=== PATIENT | male | born 1995 | race Caucasian/White ===

== ENCOUNTER 2017-03-09 04:04 | Emergency (ER) | payer OTHER ==
[2017-03-09 05:47] VITALS: BP 122/78
== END 2017-03-09 05:47 | disposition home or self-care (01) ==
LOC: ED 04:04
DX: R10.9 Unspecified abdominal pain (principal)
CPT/HCPCS: J0500

== ENCOUNTER 2017-11-30 17:18 | Emergency (ER) | payer OTHER ==
[~2017-11-30] VITALS: Ht 175.3 cm; Wt 159.7 kg
[2017-11-30 18:34] VITALS: Ht 175.3 cm; Wt 159.7 kg
[2017-11-30 20:32] VITALS: BP 168/88
== END 2017-11-30 20:32 | disposition home or self-care (01) ==
LOC: ED 17:18
DX: M54.5 Low back pain (principal); F17.200 Nicotine dependence, unspecified, uncomplicated; Z71.6 Tobacco abuse counseling
CPT/HCPCS: 99406